=== PATIENT | male | born 1950 | race Caucasian/White ===

== ENCOUNTER 2020-03-16 05:03 | Observation (INO) ==
[2020-03-16 05:52] LABS: Basophils % 0.5 % (0.0-0.8); Eosinophils # 0.4 10*3/uL (0.0-0.87); Eosinophils % 5.9 % (0.00-10.9); Hematocrit 43.8 VOL% (42.0-52.0); Hemoglobin 14.2 GM/DL (14.0-18.0); Immature Granulocytes % 0.3 %; Immature Granulocytes Absolute 0.02 #; Lymphocytes # 1.1 10*3/uL (1.4-4.0); Lymphocytes % 18.7 % (21.2-54.2); Mean Corpuscular HGB Conc 32.4 GM/DL (32-36); Mean Corpuscular Volume 88.1 FL (87-102); Mean Platelet Volume 10.1 FL (9.6-12.0); Monocytes % 12.5 % (1.7-12.7); Neutrophils % 62.1 % (38.7-73.9); Platelet Count 132 T/CUMM (130-400); Red Blood Count 4.97 MC/CUMM (3.8-5.5); Red Cell Distribution Width 14.8 % (9.3-17.3); White Blood Count 6.1 T/CUMM (4-12)
[2020-03-16 06:01] LABS: INR 1.1; PT Patient Result 11.4 SECS (9.8-11.9); Partial Thromboplastin Time 29.1 SECS (23.9-33.8)
[2020-03-16 06:22] LABS: Albumin 3.9 G/DL (3.4-5.0); Calcium 8.9 MG/DL (8.5-10.1); Osmolality,Calculated 283.3 MOS/KG (273-304); Total Protein 7.1 G/DL (6.4-8.3)
[2020-03-16 06:28] LABS: Hypochromasia 1+; Microcytosis 1+; Ovalocytes Few; Platelet Estimate Adequate
[2020-03-16] MEDS ORDERED: ENOXAPARIN 80 MG/0.8 ML SYRINGE SUBCUT STA (06:37)
[2020-03-16] MEDS ORDERED: ASPIRIN CHEW 81 MG TABLET PO STA (06:37)
[2020-03-16] MEDS ORDERED: ONDANSETRON 4 MG/2 ML VIAL IV PRN (06:41)
[2020-03-16] MEDS ORDERED: MAGNESIUM SULF RIDER 2 GM in PREMIX 1 EACH IV PRN (06:41)
[2020-03-16] MEDS ORDERED: POTASSIUM CHLORIDE 20 MEQ TABLET PO PRN (06:41)
[2020-03-16] MEDS ORDERED: MORPHINE 4 MG/1 ML VIAL IV PRN (06:41)
[2020-03-16] MEDS ORDERED: MAGNESIUM SULF RIDER 4 GM in PREMIX 1 EACH IV PRN (06:41)
[2020-03-16] MEDS ORDERED: NITROGLYCERIN SL 0.4 MG TABLET SL PRN (06:43)
[2020-03-16] MEDS: ENOXAPARIN 80 MG/0.8 ML SYRINGE SUBCUT SCH ×2 (08:13→21:52)
[2020-03-16 08:52] LABS: Risk Ratio 2.54; VLDL CHOLESTEROL 13.4 MG/DL
[2020-03-16] MEDS ORDERED: carvediloL 3.125 MG TABLET PO SCH (09:00)
[2020-03-16] MEDS ORDERED: PANTOPRAZOLE 40 MG TABLET PO SCH (09:00)
[2020-03-16] MEDS ORDERED: RANOLAZINE 500 MG TABLET PO SCH (09:00)
[2020-03-16] MEDS: RANOLAZINE 500 MG TABLET PO SCH ×2 (10:19→21:51)
[2020-03-16] MEDS: SODIUM CHLORIDE 0.45% 1,000 ML IV SCH (12:44)
[2020-03-16] MEDS: ASPIRIN EC 81 MG TABLET PO SCH (21:51)
[2020-03-16] MEDS: ROSUVASTATIN 20 MG TABLET PO SCH (21:51)
[2020-03-17] MEDS: SODIUM CHLORIDE 0.45% 1,000 ML IV SCH ×2 (04:46→23:42)
[2020-03-17] MEDS: RANOLAZINE 500 MG TABLET PO SCH ×2 (09:14→21:04)
[2020-03-17] MEDS: MULTIVITAMIN (CENTRUM) TABLET PO SCH (09:15)
[2020-03-17] MEDS: SACUBITRIL/VALSARTAN 49-51 MG TABLET PO SCH ×2 (09:15→21:05)
[2020-03-17] MEDS: EZETIMIBE 10 MG TABLET PO SCH (09:15)
[2020-03-17] MEDS: CLOPIDOGREL 75 MG TABLET PO SCH (09:15)
[2020-03-17] MEDS: ENOXAPARIN 80 MG/0.8 ML SYRINGE SUBCUT SCH ×2 (09:15→21:09)
[2020-03-17] MEDS: PANTOPRAZOLE 40 MG TABLET PO SCH (09:15)
[2020-03-17] MEDS: METOPROLOL TARTRATE 50 MG TABLET PO SCH ×2 (09:15→21:05)
[2020-03-17] MEDS: FUROSEMIDE 20 MG TABLET PO SCH (09:15)
[2020-03-17] MEDS: ASPIRIN EC 81 MG TABLET PO SCH (21:05)
[2020-03-17] MEDS: ROSUVASTATIN 20 MG TABLET PO SCH (21:05)
[2020-03-18 08:31] LABS: Basophils % 0.7 % (0.0-0.8); Eosinophils # 0.3 10*3/uL (0.0-0.87); Eosinophils % 6.2 % (0.00-10.9); Hematocrit 43.8 VOL% (42.0-52.0); Hemoglobin 14.3 GM/DL (14.0-18.0); Lymphocytes # 1.3 10*3/uL (1.4-4.0); Lymphocytes % 29.8 % (21.2-54.2); Mean Corpuscular HGB Conc 32.6 GM/DL (32-36); Mean Corpuscular Volume 86.7 FL (87-102); Mean Platelet Volume 9.8 FL (9.6-12.0); Monocytes % 13.6 % (1.7-12.7); Neutrophils % 49.7 % (38.7-73.9); Platelet Count 116 T/CUMM (130-400); Red Blood Count 5.05 MC/CUMM (3.8-5.5); White Blood Count 4.2 T/CUMM (4-12)
[2020-03-18 08:58] LABS: Hypochromasia 1+; Microcytosis 1+; Ovalocytes Few
[2020-03-18 08:59] LABS: Platelet Estimate Decreased
[2020-03-18 09:02] LABS: Calcium 9.3 MG/DL (8.5-10.1); Osmolality,Calculated 280.4 MOS/KG (273-304)
[2020-03-18] MEDS ORDERED: LIDOCAINE 1% 20 ML VIAL ONE (09:27)
[2020-03-18] MEDS ORDERED: POTASSIUM CHLORIDE RIDER 10 MEQ in PREMIX 1 EACH IV PRN (09:34)
[2020-03-18] MEDS ORDERED: diphenhydrAMINE CAP 25 MG CAPSULE PO ONE (09:34)
[2020-03-18] MEDS ORDERED: MAGNESIUM SULF RIDER 2 GM in PREMIX 1 EACH IV PRN (09:34)
[2020-03-18] MEDS ORDERED: DIAZEPAM 5 MG TABLET PO ONE (09:34)
[2020-03-18] MEDS ORDERED: MIDAZOLAM 2 MG/2 ML VIAL ONE (09:39)
[2020-03-18] MEDS ORDERED: HYDROmorphone 2 MG/1 ML VIAL ONE (09:39)
[2020-03-18] MEDS ORDERED: diphenhydrAMINE CAP 50 MG CAPSULE ONE (09:45)
[2020-03-18] MEDS: METOPROLOL TARTRATE 50 MG TABLET PO SCH ×2 (09:48→21:22)
[2020-03-18] MEDS: RANOLAZINE 500 MG TABLET PO SCH ×2 (09:48→21:22)
[2020-03-18] MEDS: ENOXAPARIN 80 MG/0.8 ML SYRINGE SUBCUT SCH (09:49)
[2020-03-18] MEDS: SACUBITRIL/VALSARTAN 49-51 MG TABLET PO SCH (10:11)
[2020-03-18] MEDS ORDERED: HEPARIN 5,000 UNIT/1 ML VIAL ONE (10:42)
[2020-03-18] MEDS ORDERED: ADENOSINE 90 MG/30 ML VIAL IV ONE (10:51)
[2020-03-18] MEDS ORDERED: TICAGRELOR 90 MG TABLET ONE (12:17)
[2020-03-18] MEDS: FUROSEMIDE 20 MG TABLET PO SCH (13:02)
[2020-03-18] MEDS: CLOPIDOGREL 75 MG TABLET PO SCH (13:02)
[2020-03-18] MEDS ORDERED: MAGNESIUM HYDROXIDE SUSP 30 ML UDCUP PO PRN (14:12)
[2020-03-18] MEDS ORDERED: diphenhydrAMINE CAP 25 MG CAPSULE PO PRN (14:13)
[2020-03-18] MEDS: MULTIVITAMIN (CENTRUM) TABLET PO SCH (14:34)
[2020-03-18] MEDS: PANTOPRAZOLE 40 MG TABLET PO SCH (14:34)
[2020-03-18] MEDS: EZETIMIBE 10 MG TABLET PO SCH (14:34)
[2020-03-18 15:15] LABS: CKMB % 1.6 %; Troponin I 0.022 NG/ML (0.00-0.045)
[2020-03-18] MEDS: SODIUM CHLORIDE 0.45% 1,000 ML IV SCH (18:06)
[2020-03-18] MEDS: ROSUVASTATIN 20 MG TABLET PO SCH (21:22)
[2020-03-18] MEDS: TICAGRELOR 90 MG TABLET PO SCH (21:22)
[2020-03-18] MEDS: ASPIRIN EC 81 MG TABLET PO SCH (21:22)
[2020-03-19 06:35] LABS: Basophils % 0.3 % (0.0-0.8); Eosinophils # 0.2 10*3/uL (0.0-0.87); Hematocrit 42.1 VOL% (42.0-52.0); Hemoglobin 13.8 GM/DL (14.0-18.0); Immature Granulocytes % 0.3 %; Immature Granulocytes Absolute 0.02 #; Lymphocytes % 17.1 % (21.2-54.2); Mean Corpuscular HGB Conc 32.8 GM/DL (32-36); Mean Corpuscular Volume 88.3 FL (87-102); Mean Platelet Volume 9.9 FL (9.6-12.0); Monocytes % 13.1 % (1.7-12.7); Neutrophils % 65.2 % (38.7-73.9); Platelet Count 114 T/CUMM (130-400); Red Blood Count 4.77 MC/CUMM (3.8-5.5); Red Cell Distribution Width 14.9 % (9.3-17.3); White Blood Count 5.7 T/CUMM (4-12)
[2020-03-19 06:55] LABS: Calcium 8.9 MG/DL (8.5-10.1); Osmolality,Calculated 275.7 MOS/KG (273-304)
[2020-03-19 07:00] LABS: CKMB % 4.4 %; Calcium 9.3 MG/DL (8.5-10.1); Osmolality,Calculated 278.5 MOS/KG (273-304)
[2020-03-19 07:06] LABS: Troponin I 2.47 NG/ML (0.00-0.045)
[2020-03-19] MEDS: MULTIVITAMIN (CENTRUM) TABLET PO SCH (08:00)
[2020-03-19] MEDS: RANOLAZINE 500 MG TABLET PO SCH (08:00)
[2020-03-19] MEDS: EZETIMIBE 10 MG TABLET PO SCH (08:01)
[2020-03-19] MEDS: METOPROLOL TARTRATE 50 MG TABLET PO SCH (08:01)
[2020-03-19] MEDS: PANTOPRAZOLE 40 MG TABLET PO SCH (08:01)
[2020-03-19] MEDS: TICAGRELOR 90 MG TABLET PO SCH (08:01)
[2020-03-19] MEDS ORDERED: ASPIRIN EC 81 MG TABLET PO SCH (09:00)
[2020-03-19 12:36] VITALS: BP 124/74
== END 2020-03-19 13:40 | disposition home or self-care (01) ==
LOC: N.EDINP 05:03 → N.ED 05:03 → N.EDINP 07:41 → N.TELES 07:45
PROVIDERS: ADMIT Internal Medicine Cardiovascular Disease; ATTEND Internal Medicine Cardiovascular Disease